=== PATIENT | male | born 1995 | race African-American/Black ===

== ENCOUNTER 2018-09-03 08:42 | Day surgery (SDC) | payer BC ==
[2018-08-31 15:43] VITALS: Ht 175.3 cm; Wt 79.5 kg
[~2018-09-03] VITALS: Ht 175.3 cm; Wt 79.5 kg
[2018-09-03] VITALS (13 sets, daily range): BP systolic 110–136; BP diastolic 53–70; PULSE 54–70; RESP 10–20
[~2018-09-03 08:42] MED LIST: LIDOCAINE 2% (SDV) 5 ML INJ ONE; PROPOFOL 200 MG INJ ONE; ROCURONIUM 50 MG INJ ONE; SEVOFLURANE 15 MIN ONE; SUCCINYLCHOLINE CHLORIDE 100 MG/5 ML SYG IV ONE
--- NOTE | 2018-09-03 10:46 | PREAC ---
Date/Time of Note Date/Time of Note DATE: 09/03/18 TIME: 10:45 Anesthesia Eval and Record Evaluation Time Pre-Procedure Interview DATE: 09/03/18 TIME: 10:45 Age 23 Sex male NPO: 8 hrs Preoperative diagnosis lose body left ankle Planned procedure left ankle operative arthroscopy, extensive debridement, microfracture and drilling tibia-talus, removal loose bodies Past Medical History Past Medical History: None Surgery & Anesthesia Issues No known issue Meds Anticoagulation: No Beta Erica within 24 hr: No Reason Beta Erica not given: Pt. not on B-Erica No Active Prescriptions or Reported Meds Meds reviewed: Yes Allergies Coded Allergies: No Known Allergy (Unverified , 09/03/18) Allergies Reviewed: Yes Labs/Studies Labs Reviewed: Reviewed by anesthesiologist test: N/A Pre-procedure Exam Last vitals Vital Signs Date Temp Pulse Resp B/P (MAP) Pulse Ox O2 O2 Flow FiO2 Time Delivery Rate 09/03/18 98.4 56 18 115/59 100 Room Air 09:25 (77) Airway: Adequate mouth opening, Adequate thyromental dist Mallampati: Mallampati II Teeth: Normal Lung: Normal Heart: Normal ASA Physical Status ASA physical status: 1 Emergency: None Planned Anesthetic General/MAC: ETT Nerve block: Sciatic (left) Planned Pain Management Single shot nerve block, Parenteral pain med Pre-operative Attestations Prior to commencing anesthesia and surgery, the patient was re-evaluated, there was verification of: *The patient's identity *The results of appropriate recent lab work and preoperative vital signs *The above evaluation not changing prior to induction *Anesthetic plan, risk benefits, alternative and complications discussed with pa tient/family; questions answered; patient/family understands, accepts and wishes to proceed. ESTELA BOJORQUEZ MD Sep 03, 2018 10:46
--- NOTE | 2018-09-03 10:47 | PAC ---
Date/Time of Note Date/Time of Note DATE: 09/03/18 TIME: 10:46 Post-Anesthesia Notes Post-Anesthesia Note Last documented vital signs Vital Signs Date Temp Pulse Resp B/P (MAP) Pulse Ox O2 O2 Flow FiO2 Time Delivery Rate 09/03/18 98.4 56 18 115/59 100 Room Air 09:25 (77) Activity: WNL Respiratory function: WNL Cardiovascular function: WNL Mental status: Baseline Pain reasonably controlled: Yes Hydration appropriate: Yes Nausea/Vomiting absent: Yes Comments BP: 127/75 HR: 93 RR: 16 T: 98.8 SaO2: 98% ESTELA BOJORQUEZ MD Sep 03, 2018 10:47
[2018-09-03] MEDS ORDERED: POVIDONE IODINE 10% 28.4 GM OINT ONE (10:48)
[2018-09-03] MEDS ORDERED: ROPIVACAINE 0.5 % 30 ML VIAL ONE ×2 (10:48→10:50)
[2018-09-03] MEDS ORDERED: FENTAnyl 50 MCG/ML VIAL ONE (10:50)
[2018-09-03] MEDS ORDERED: MIDAZOLAM 1 MG/ML 2 ML INJ ONE (10:50)
[2018-09-03] MEDS ORDERED: CEFAZOLIN 1 GM INJ ONE ×2 (11:22→13:34)
[2018-09-03] MEDS ORDERED: ONDANSETRON 4 MG INJ ONE (11:22)
[2018-09-03] MEDS ORDERED: DEXAMETHASONE 4 MG/ML 5 ML INJ ONE (11:22)
[2018-09-03] MEDS ORDERED: FAMOTIDINE 20 MG INJ ONE (11:22)
[2018-09-03] MEDS ORDERED: HYDROmorphONE 2 MG/ML SYG ONE (13:14)
[2018-09-03] MEDS ORDERED: SOD CHLORIDE 0.9% 1,000 ML IV SCH (13:23)
--- NOTE | 2018-09-03 13:25 | OPPN ---
Date/Time of Note Date/Time of Note DATE: 09/03/18 TIME: 13:24 Operative Report Preoperative Diagnosis Left ankle loose bodies, impingement Postoperative Diagnosis left ankle soft tissue synovitis and impingement, loose bodies Operation/Procedure Performed operative arthroscopy of the left ankle, removal of loose bodies, extensive debridement Surgeon see signature line project construction assistant manager Libra Castillo PA-C Anesthesia: general Estimated blood loss: minimal Transfusion Required none Specimen none Grafts/Implants none Complications none CHARMAINE LUBIN MD Sep 03, 2018 13:25
[2018-09-03] MEDS ORDERED: morphine 2 MG INJ IV PRN (13:30)
[2018-09-03] MEDS ORDERED: ONDANSETRON 4 MG INJ IV PRN (13:30)
[2018-09-03] MEDS ORDERED: OXYCODONE/ACETAMINOPHEN (5/325) TAB PO PRN ×2 (13:30)
[2018-09-03] MEDS ORDERED: GLYCOPYRROLATE 0.4 MG INJ ONE (13:39)
[2018-09-03] MEDS ORDERED: NEOSTIGMINE 3 MG/3 ML SYRINGE ONE (13:39)
--- NOTE | 2018-09-03 14:06 | NUR ---
RECEIVED ASLEEP WITH OXYGEN MASK ON AND ORAL AIRWAY IN PLACE. DRESSING ON LEFT FOOT IN PLACE, DRY AND INTACT COVERED WITH BIAS WRAP AND ELEVATED ON A FOAM PILLOW, TOES EXPOSED, WARM TO TOUCH WITH GOOD CAP REFILL.
--- NOTE | 2018-09-03 15:08 | NUR ---
MADE AWARE MOTHER CALLED FROM [place] AND RELAYED MESSAGE TO GIVE HER A CALL SOON HE GETS HOME. DENIES PAIN, COMFORTABLE. LEFT LEG REMAINS ELEVATED ON A FOAM PILLOW.
--- NOTE | 2018-09-03 15:14 | NUR ---
STABLE. DENIES PAIN. REPORT TO ARCELIA GONZALEZ. TRANSFERRED TO [facility], [facility] SENT WITH PATIENT.NO S/S BLEEDING. FRIEND (ANTONIETTA) UPDATED ON STATUS AND WILL BE WAITING IN THE LOBBY WHEN DISCHARGED.
--- NOTE | 2018-09-03 16:20 | NUR ---
SDS: PATIENT D/C HOME IN STABLE CONDITION, VS WITHIN NORMAL LIMITS, NO PAIN OR DISCOMFORT REPORTED. ALL D/C INSTRUCTIONS PROVIDED TO PATIENT AND FAMILY. THEY VERBALIZED UNDERSTANDING AND READINESS TO GO HOME. NO BLEEDING AT INCISION SITE.
--- NOTE | 2018-09-04 02:01 | OPR ---
DATE OF OPERATION: 09/03/2018 ADDENDUM: SHORT GOODS DRIER ORTHOPEDIC SURGEON OR PA: PA malt specifications control assistant was used to help me in surgery today at my request. The malt specifications control assistant helped with distraction of the ankle, manipulating the arthroscope, drilling of the o steochondral lesion and without a skilled malt specifications control assistant, this could not have been performed adequately an d thus should be compensated appropriately. Dictated By: CHARMAINE LUBIN MD RF/NTS Conf#: [id number] DID#: [id number]
--- NOTE | 2018-09-04 02:04 | OPR ---
DATE OF OPERATION: PREOPERATIVE DIAGNOSES: 1. Osteochondral lesion of the lateral talar dome, left ankle. 2. Large osteophytes and fibrosis, rule out loose bodies. POSTOPERATIVE DIAGNOSES: 1. Osteochondral lesion, anterolateral talar dome, 6 x 3 mm. 2. 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 3. Extensive scarring and fibrosis of the ankle. OPERATION PERFORMED: 1. Arthroscopy, left ankle, soft tissue distraction. 2. Excision of lateral osteochondral lesion of talus. 3. Drilling of lateral osteochondral lesion of talus. 4. Extensive debridement. 5. Removal of large nonunion fracture of the anterior distal tibia. 6. Use of fluoroscopy to verify the excision of the nonunions, osteophytes and bone fragments. 7. Short-leg splint. 8. Removal of multiple loose bodies, each greater than 1 cm. ELECTRONIC TRANSACTION IMPLEMENTER: MAJOR Bell ANESTHESIA: General with popliteal block. TOURNIQUET TIME: 97 minutes. DESCRIPTION OF PROCEDURE: The patient was taken to the operating room and placed in supine position. Satisfactory popliteal block was given. Satisfactory general anesthesia was administered, 2 grams Ancef intravenously. The left thigh was secured in the thigh ramirez. Arms were carefully padded. T he left leg was prepped and draped in usual manner. Tourniquet was inflated to 250 mmHg. Soft tissu e distraction applied. Standard anteromedial and anterolateral, and posterolateral portals were used using extreme caution to avoid injuring neurovascular structures. The entire arthroscope was insert ed. The entire anterior aspect of the ankle was extremely difficult to visualize as it was full of f ibrosis, scarring, osteochondral loose bodies and nonunion fractures of the anterior distal tibia. T he shaver was inserted. The medial gutter was debrided. The lateral gutter and anterior gutters wer e debrided. The anterior talofibular ligament was intact. Using an elevator, we elevated up the sof t tissue off the distal tibia, removed all the soft tissue until we found the anterior distal tibial osteophytes. These prominences anteriorly were loose and broken off and were nonunions of the anteri or distal tibia. The first one was freed up and removed with a large pituitary rongeur. The second one was freed up laterally and then removed a large pituitary rongeur. Further loose bodies were rem sobeida with a grasper. A bur was used to remove all of the remaining osteophytes from the medial malle olus to the syndesmosis until the ankle move freely. There was an osteochondral lesion on the dilip lateral talar dome which was excised and drilled with 0.045 K-wire. The central portion and posterio r portions of the ankle and mild chondromalacia otherwise were intact. Moderate synovitis and a lot of debris posteriorly with loose bodies which were removed with a grasper, each greater than 1 cm. A fter complete debridement, the fluoroscope was brought in. We verified that all of the nonunion frac ture fragments were removed anteriorly, and the loose bodies were removed posteriorly. The ankle mov ed freely. The wounds were irrigated clear. The wounds were closed with 4-0 black nylon and the sap henous nerve block done with 0.5% ropivacaine. Compression dressing was applied as well as a posteri or splint in neutral position. Interprocedure sponge and needle count were correct. The patient nichol erated the procedure well. Dictated By: CHARMAINE GILMORE/HARRIET Conf#: [id number] DID#: [id number]
== END 2018-09-03 16:27 | disposition home or self-care (01) ==
LOC: SDS 08:42
PROVIDERS: ATTEND Orthopaedic Surgery
DX: M93.272 Osteochondritis dissecans, left ankle and joints of left foot (principal); S82.292K Other fracture of shaft of left tibia, subsequent encounter for closed fracture with nonunion; X58.XXXD Exposure to other specified factors, subsequent encounter
CPT/HCPCS: 29891; 29892; 29898; 73610; J0690; J1100; J1170; J2250; J2405; J2710; J2795; J3010